=== PATIENT | male | born 1925 | race Caucasian/White ===

== ENCOUNTER 2016-08-27 15:25 | Outpatient (RCR) | payer MEDICARE, OTHER | END 2016-08-27 18:00 | disposition home or self-care (01) | LOC: ST 15:25 | PROVIDERS: ATTEND Family Medicine | DX: R13.13 Dysphagia, pharyngeal phase (principal) | CPT/HCPCS: 92611; G8996; G8997; G8998 ==

== ENCOUNTER → 2016-08-27 | Outpatient (CLI) | payer MEDICARE, OTHER | LOC: RAD 14:16 | PROVIDERS: ATTEND Family Medicine | DX: R13.13 Dysphagia, pharyngeal phase (principal); J69.0 Pneumonitis due to inhalation of food and vomit | CPT/HCPCS: 74230 ==

== ENCOUNTER → 2016-09-07 | Outpatient (REF) | payer MEDICARE, OTHER | LOC: LAB 15:22 | PROVIDERS: ATTEND Family Medicine | DX: R53.1 Weakness (principal) | CPT/HCPCS: 87088 ==

== ENCOUNTER → 2016-09-08 | Outpatient (REF) | payer MEDICARE, OTHER | LOC: LAB 08:35 | PROVIDERS: ATTEND Family Medicine | DX: Z53.8 Procedure and treatment not carried out for other reasons (principal) ==

== ENCOUNTER → 2016-09-25 | Outpatient (CLI) | payer MEDICARE, OTHER ==
--- NOTE | 2016-09-25 12:26 | Diagnostic Imaging Report ---
INDICATION: Bilateral hydroceles. FINDINGS: The testicles are symmetrical with homogeneous appearance. Right testicle measures 4.1 x 2.2 x 2 cm. Left testicle measures 4.2 x 2.2 x 1.7 cm. There is normal blood flow to both testes. The epididymides appear normal bilaterally. There is a large volume of fluid within the scrotum on the right and left. No evidence of varicoceles. IMPRESSION: 1. Large bilateral hydroceles. 2. Testicles appear normal. Dictated by: Dictated on workstation # [id number]
== END ==
LOC: RAD 08:46
PROVIDERS: ATTEND Family Medicine
DX: N43.2 Other hydrocele (principal)
CPT/HCPCS: 76870

== ENCOUNTER → 2016-10-02 | Outpatient (REF) | payer MEDICARE, OTHER ==
[~2016-10-02] MED LIST: AC325T PO; CARV12.5 PO; CLPD75T PO; DOCU-243 PO; FURO-124 PO; LISI5TAB14 PO; MAGN400O7 PO; NTR.4SL SL; POLY17PO6 PO; POTA20TA15 PO; TAMS-8 PO; TRM50T PO
[2016-10-02 16:50] LABS: ANION GAP 12.4 MEQ/L (3-15)
== END ==
LOC: LAB 15:00
PROVIDERS: ATTEND Family Medicine
DX: R06.02 Shortness of breath (principal)
CPT/HCPCS: 80048; 83880

== ENCOUNTER 2016-10-03 13:04 | Emergency (ER) | payer MEDICARE, OTHER ==
[~2016-10-03] VITALS: Ht 170.2 cm; Wt 67.9 kg
--- OUTSIDE RECORDS SUMMARY | 2016-10-03 13:08 | XMS REPORT ---
Author Author Luc Zhang [facility] eClinicalWorks Address Unknown Phone Unavailable Care Team Providers Care Oxygen Therapy Teacher Name Role Phone Luc Zhang CP Unavailable Allergies, Adverse Reactions, Alerts Substance Reaction Event Type N.K.D.A. 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 Active Problem Episodic atrial fibrillation I48.0 Active Problem CAD (coronary artery disease) I25.10 Active Assessment Hypertension I10 Active Assessment 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 [address]-21 10 MEQ Orally qd 1 tab Carvedilol [facility] [address]-33 12.5 MG Orally tid 1/2 tab Iron [facility] [address]-12 240 (27 Fe) MG Orally qd 2 tabs Vitamin B Complex [facility] [address]674-[address]46 Orally qd 1 tab Lisinopril [facility] [address]-19 2.5 MG Orally Once a day Mar 14, 2015 1 tablet Clopidogrel Bisulfate [facility] [address]-23 75 MG Orally qd 1 tab multivitamin NDC 0 po qd 1 tablet Nitroglycerin [facility] [address]-24 0.4 MG Sublingual prn chest pain Feb 12, 2014 1 tab Fish Oil [facility] [address]-50 Orally Once a day 1 capsule Furosemide [facility] [address]-27 40 MG Orally daily 2 tab am and one tabe pm Procedures Procedure Coding System Code Date Ofc Program PM Single, Staff CPT-4 48235 December 14, 2015 Office Visit, Delicia Pt., Level 3 CPT-4 30578 December 14, 2015 Vital Signs Date/Time: December 14, 2015 BMI 25.77 Index Weight 184.8 lbs Height 5 ft 11 in in Cardiac Monitoring Heart Rate 84 /min Oximetry 98%RA % Blood Pressure Diastolic 90 mm Hg Blood Pressure Systolic 130 mm Hg Results No Known Results Summary Purpose eClinicalWorks Submission
[2016-10-03] MEDS ORDERED: SODIUM CHLORIDE FLUSH 3 ML SYR IV ONE (13:25)
[2016-10-03] MEDS ORDERED: SODIUM CHLORIDE FLUSH 10 ML SYR IV PRN (13:25)
--- NOTE | 2016-10-03 14:14 | NUR ---
pt here for soa but o2 sats staying > 90% on ra thus far. cl
[2016-10-03 14:18] LABS: BASOPHILS % (AUTO) 0 % (0-2); EOSINOPHILS # (AUTO) 0.1 10^3uL; EOSINOPHILS % (AUTO) 1 % (0-4); MEAN CORPUSCULAR HGB CONC 33.3 g/dL (31.0-37.0); MEAN PLATELET VOLUME 10.4 FL (6.0-9.5); MONOCYTES # (AUTO) 0.6 X10^3; MONOCYTES % (AUTO) 9 % (3-11); NEUTROPHILS # (AUTO) 5.7 X10^3; NEUTROPHILS % (AUTO) 76 % (51-67); PLATELET COUNT 246 10^3uL (150-450); WHITE BLOOD COUNT 7.44 10^3uL (4.0-11.0)
[2016-10-03 14:22] LABS: MEAN CORPUSCULAR HEMOGLOBIN 32.5 PG (26.0-34.0); MEAN CORPUSCULAR VOLUME 98 FL (80-100)
[2016-10-03 14:23] LABS: ALBUMIN 3.4 g/dL (3.4-5.0); ALKALINE PHOSPHATASE 117 U/L (38-126); ANION GAP 12.7 MEQ/L (3-15); BUN/CREATININE RATIO 35 (10-20); CALCULATED IONIZED CALCIUM 4.1 mg/dL (3.8-4.6); TOTAL PROTEIN 6.5 g/dL (6.4-8.5)
[2016-10-03 14:26] LABS: CREATINE KINASE < 20 U/L (55-170)
--- NOTE | 2016-10-03 14:35 | Diagnostic Imaging Report ---
INDICATION: Shortness of breath. EXAMINATION: PA and lateral chest. FINDINGS: There are postop changes from a median sternotomy. There is a small left pleural effusion. There is some left basilar atelectasis. There is a unipolar pacemaker. IMPRESSION: Left basilar atelectasis with left pleural effusion. Dictated by: Dictated on workstation # [id number]
--- NOTE | 2016-10-03 14:35 | NUR ---
PT STATES HE WOULD LIKE TO URINATE. ASSISTED TO STANDING POS. PT BECAME SOA. PT WOULD RATHER USE A URINAL. URINAL PLACED & PT UNAWARE OF IF HE HAS URINATED AT THIS TIME. NO URINE NOTED IN URINAL YET. LEFT IN PLACE W/COVERS OVER HIM. CL
[2016-10-03] MEDS ORDERED: POLY17PO6 PO (14:45)
[2016-10-03] MEDS ORDERED: FURO-124 PO (14:45)
[2016-10-03] MEDS ORDERED: NTR.4SL SL (14:45)
[2016-10-03] MEDS ORDERED: AC325T PO (14:45)
[2016-10-03] MEDS ORDERED: TAMS-8 PO (14:45)
[2016-10-03] MEDS ORDERED: DOCU-243 PO (14:45)
[2016-10-03] MEDS ORDERED: CARV12.5 PO (14:45)
[2016-10-03] MEDS ORDERED: LISI5TAB14 PO (14:45)
[2016-10-03] MEDS ORDERED: CLPD75T PO (14:45)
[2016-10-03] MEDS ORDERED: MAGN400O7 PO (14:45)
[2016-10-03] MEDS ORDERED: TRM50T PO (14:45)
[2016-10-03] MEDS ORDERED: POTA20TA15 PO (14:45)
--- NOTE | 2016-10-03 14:59 | NUR ---
PT REMAINS >90% ON RA FOR O2 SATS. FAMILY REMAINS AT BEDSIDE. CL
[2016-10-03 15:09] LABS: BILIRUBIN,URINE Negative (Negative); CLARITY,URINE Clear; COLOR,URINE Yellow; GLUCOSE, URINE (UA) Negative (Negative); LEUKOCYTE ESTERASE ,URINE Negative (Negative); PH,URINE 5.5 (5.0 - 8.0); UROBILINOGEN,URINE 0.2 mg/dL (0.2-1.0)
--- NOTE | 2016-10-03 15:23 | NUR ---
[facility]LEY CALLED WITH REPORT BY Richa ARCINIEGA RN. CL
[2016-10-03 15:27] VITALS: BP 125/72
== END 2016-10-03 15:30 | disposition home or self-care (01) ==
LOC: ED 13:07
DX: I11.0 Hypertensive heart disease with heart failure (principal); I50.9 Heart failure, unspecified; J90 Pleural effusion, not elsewhere classified
CPT/HCPCS: 36415; 71020; 80053; 81003; 82550; 82553; 83605; 83880; 84443; 84484; 85025; 85379; 85610; 87040; 93005; 93010; 99285

== ENCOUNTER → 2016-10-11 | Outpatient (CLI) | payer MEDICARE, OTHER ==
--- NOTE | 2016-10-11 10:19 | Diagnostic Imaging Report ---
INDICATION: Congestive failure. Comparison with 10/03/2016. FINDINGS: There continues to be left basilar infiltrate and pleural effusion. There has been development of right basilar effusion since previous exam. Median sternotomy changes are present. There continues to be cardiomegaly. Pacemaker unchanged with generator on left chest. IMPRESSION: 1. Increasing pleural effusion since previous exam now present bilaterally. 2. Continued cardiomegaly. Persistent left basilar infiltrate with mild right basilar infiltrate now present Dictated by: Dictated on workstation # [id number]
== END ==
LOC: RAD 09:18
PROVIDERS: ATTEND Family Medicine
DX: I50.40 Unspecified combined systolic (congestive) and diastolic (congestive) heart failure (principal); I51.7 Cardiomegaly
CPT/HCPCS: 71020

== ENCOUNTER → 2016-10-18 | Outpatient (CLI) | payer MEDICARE, OTHER ==
[2016-10-18 09:14] LABS: BASOPHILS % (AUTO) 0 % (0-2); EOSINOPHILS # (AUTO) 0.4 10^3uL; EOSINOPHILS % (AUTO) 5 % (0-4); LYMPHOCYTES # (AUTO) 1.4 X10^3; MEAN CORPUSCULAR HEMOGLOBIN 31.3 PG (26.0-34.0); MEAN CORPUSCULAR HGB CONC 32.9 g/dL (31.0-37.0); MEAN CORPUSCULAR VOLUME 95 FL (80-100); MEAN PLATELET VOLUME 11.3 FL (6.0-9.5); MONOCYTES # (AUTO) 0.6 X10^3; MONOCYTES % (AUTO) 7 % (3-11); NEUTROPHILS # (AUTO) 5.8 X10^3; NEUTROPHILS % (AUTO) 71 % (51-67); PLATELET COUNT 149 10^3uL (150-450); WHITE BLOOD COUNT 8.18 10^3uL (4.0-11.0)
[2016-10-18 09:25] LABS: ANION GAP 11.8 MEQ/L (3-15)
--- NOTE | 2016-10-18 13:27 | Diagnostic Imaging Report ---
INDICATION: Streptococcal pneumonia. PA and lateral chest. 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 Patient has had previous kyphoplasty in the upper thoracic vertebral body. There is cardiomegaly. There is a dual-chamber pacemaker. There are postop changes from median sternotomy. There is some consolidation at the left lung base and a small associated effusion. There is minimal right basilar atelectasis. IMPRESSION: Improved aeration in right lower lung. There continues to be some consolidation at the left lung base that may be slightly improved compared to exam dated 10/11/2016. Dictated by: Dictated on workstation # [id number]
== END ==
LOC: LAB 09:01
PROVIDERS: ATTEND Family Medicine
DX: J13 Pneumonia due to Streptococcus pneumoniae (principal); R79.89 Other specified abnormal findings of blood chemistry; D50.8 Other iron deficiency anemias; I50.22 Chronic systolic (congestive) heart failure
CPT/HCPCS: 36415; 71020; 80048; 83880; 85025